=== PATIENT | male | born 1960 | race Caucasian/White ===

== ENCOUNTER → 2017-05-19 | Outpatient (CLI) | payer BC ==
[~2017-05-19] MED LIST: AMLO2.5T PO; ATOR10TA9 PO; DISO100C3 PO; FURO-93 PO; HYDR12.53 PO; ISOS5TAB2 PO; LEVO25TA4 PO; METF10002 PO; METO25TA35 PO; NITR0.3T5 SL; TAMS0.4C2 PO; WARF1TAB PO
== END | disposition home or self-care (01) ==
LOC: CVU 12:48
PROVIDERS: ATTEND Genetic Counselor, MS
DX: I42.0 Dilated cardiomyopathy (principal); I10 Essential (primary) hypertension; E78.5 Hyperlipidemia, unspecified; R73.03 Prediabetes; M79.669 Pain in unspecified lower leg
CPT/HCPCS: 93922